=== PATIENT | male | born 1980 | race Caucasian/White ===

== ENCOUNTER 2017-01-14 15:37 | Emergency (ER) | payer OTHER ==
[~2017-01-14] VITALS: Ht 185.4 cm; Wt 83.9 kg
[2017-01-14 15:40] VITALS: BP 126/81
[2017-01-14] MEDS ORDERED: CIPROFLOXACIN HCL 500 MG TABLET PO ONE (16:00)
== END 2017-01-14 15:57 | disposition home or self-care (01) ==
LOC: ER 15:39
DX: Z20.811 Contact with and (suspected) exposure to meningococcus (principal)
CPT/HCPCS: A4606; Z7610